=== PATIENT | male | born 1995 | race Caucasian/White ===

== ENCOUNTER 2025-01-11 21:08 | Emergency (ER) | payer MEDICAID | END 2025-01-12 01:34 | disposition left against medical advice (07) | LOC: ER 21:15 | DX: T18.9XXA Foreign body of alimentary tract, part unspecified, initial encounter (principal); Z53.21 Procedure and treatment not carried out due to patient leaving prior to being seen by health care provider; W44.9XXA Unspecified foreign body entering into or through a natural orifice, initial encounter; Y93.89 Activity, other specified; Y92.89 Other specified places as the place of occurrence of the external cause; Y99.8 Other external cause status ==